=== PATIENT | male | born 1950 | race Caucasian/White ===

== ENCOUNTER 2017-06-14 09:22 | Emergency (ER) | payer MEDICARE, OTHER ==
[~2017-06-14] VITALS: Ht 180.3 cm; Wt 122.2 kg
[2017-06-14] MEDS ORDERED: TETanus/Pertussis (Acell)/Diphther VAC/PF (Tdap-Adult) 0.5ml syringe IM ONE (11:35)
[2017-06-14 12:02] VITALS: BP 143/87
== END 2017-06-14 12:03 | disposition home or self-care (01) ==
LOC: ER 09:24
DX: M25.511 Pain in right shoulder (principal); I27.20 Pulmonary hypertension, unspecified; W11.XXXA Fall on and from ladder, initial encounter; Y93.89 Activity, other specified; Y92.89 Other specified places as the place of occurrence of the external cause; Y99.9 Unspecified external cause status
CPT/HCPCS: 73030; 90471; 90715; 99284